=== PATIENT | female | born 1985 | race Caucasian/White ===

== ENCOUNTER → 2017-06-14 07:32 | Outpatient (CLI) | payer OTHER, SELFPAY ==
--- NOTE | 2017-06-14 07:37 | US_ITS ---
STUDY: THYROID ULTRASOUND REASON FOR EXAM: Female, 31 years old. Nodules TECHNIQUE: Ultrasound evaluation of the thyroid was performed with real-time and static wills-scale imaging. COMPARISON: October 20, 2014 FINDINGS: RIGHT LOBE: The right lobe of the thyroid gland measures 5.5x1.6x2.2 cm. There is a heterogeneous echotexture. Multiple thyroid nodules. The largest is in the midline measuring 15 x 11 x 11 mm. The lesion is solid /cystic with regular margins and boby nodular doppler flow. LEFT LOBE: The left lobe of the thyroid gland measures 7.4x3.2x3.1 cm. There is a heterogeneous echotexture. Multiple thyroid nodules. The largest is in the upper pole measuring 37 x 30 x 24 mm. The lesion is solid /cystic with regular margins and intra- nodular doppler flow. ISTHMUS: The isthmus measures 9 mm. Isthmus nodule measuring 29 x 25 x 17 mm. US/Thyroid IMPRESSION: Bilateral multiple thyroid nodules. Largest right nodule has decreased in size. Largest left thyroid nodule has increased in size. Isthmus nodule has enlarged. Electronically Signed: Emmanuel Luna MD at 17:08 EDT , Service support ,
== END ==
PROVIDERS: Family Provider Nurse Practitioner; PCP Nurse Practitioner; Visit Provider Nurse Practitioner
DX: E04.2 Nontoxic multinodular goiter (principal)
CPT/HCPCS: 76536

== ENCOUNTER → 2017-06-27 16:37 | Outpatient (CLI) | payer OTHER, SELFPAY ==
--- NOTE | 2017-06-27 14:15 | ASPS_PTH ---
PATIENT: NOELLE KRUEGER [facility] U[id number] AGE/SX: 39/F ROOM: RE06/27/[address]: Dr. Hill Kahn MD : 1985 BED: DIS: SPEC #: [id number] RECD: 06/27/17 16:10 STATUS: DMOINIC MILLER #: [id number] APRYL: 06/27/17 14:[address]: Hill Kahn DEPT: CYTOLOGY RECD BY: Juan Villanueva ENTERED: 06/28/17 08:40 SP TYPE: ASPIRATION OTHR DR: Berenice Diaz, CATALYTIC CONVERTER OPERATOR-C Tissues: A - Thyroid gland, NOS B - Thyroid isthmus Procedures: Pap Stain (control) Special Stain Group II Cytology Other HEADER OPERATION: Ultrasound-guided fine needle aspiration left thyroid and isthmus PRE-OP DIAGNOSIS: Multinodular goiter TISSUE SUBMITTED: A ? Fine needle aspiration left thyroid (12 slides), B - Fine needle aspiration isthmus (12 slides) DIAGNOSIS CYTOLOGY A. Left thyroid, ultrasound-guided FNA (smears): Consistent with benign follicular nodule. See cytology study and comment. B. Isthmus, ultrasound-guided FNA (smears): Consistent with benign follicular nodule. See cytology study and comment. SJ:rg 07/01/17 COMMENT A & B. 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 Correlation with clinical, radiologic findings and appropriate follow up are necessary. Please make reference to previous cytology ([id number]) right thyroid nodule, ultrasound-guided FNA with diagnosis of negative for malignant cells and left thyroid nodule, FNA with diagnosis of benign colloid nodule, and ([id number]) right thyroid nodule, FNA with diagnosis of consistent with benign follicular nodule. CYTOLOGY STUDY Slides are reviewed. A & B. The specimen is adequate for evaluation. The specimen consists of benign follicular cells, colloid and lymphocytes. CYTOLOGY GROSS A - Received are 12 smears labeled with the patient's name and designated per the requisition as left thyroid. Submitted for staining. B - Received are 12 smears labeled with the patient's name and designated per the requisition as isthmus. Submitted for staining. 06/28/17 TC:5 CPT: 41746 x2
== END ==
PROVIDERS: Family Provider Nurse Practitioner; PCP Nurse Practitioner; Visit Provider Surgery
DX: E04.2 Nontoxic multinodular goiter (principal)
CPT/HCPCS: 88161; 88313

== ENCOUNTER → 2019-05-22 08:50 | Outpatient (CLI) | payer OTHER, SELFPAY ==
--- NOTE | 2019-05-22 08:56 | US_ITS ---
STUDY: THYROID ULTRASOUND REASON FOR EXAM: Female, 33 years old. NODULES TECHNIQUE: Ultrasound evaluation of the thyroid was performed with real-time and static wills-scale imaging. COMPARISON: Comparison is made with the prior examination dated June 14, 2017. FINDINGS: RIGHT LOBE: The right lobe of the thyroid gland is enlarged and measures 6.2 cm x 1.5 cm x 2.6 cm. There is a heterogeneous echotexture. Once again, multiple hypoechoic solid nodules are seen. The largest measures 2 cm x 1.8 cm x 1.7 cm. This is in the mid pole. This has increased in size as compared to prior study. A biopsy is recommended for further evaluation. LEFT LOBE: The left lobe of the thyroid gland is enlarged and measures 7.4 cm x 3.1 cm x 3.9 cm. There is a heterogeneous echotexture. Multiple solid nodules are seen. The largest measures 3 cm x 3 3 cm x 2.7 cm. This is in the midportion of the pole. This is essentially unchanged. A biopsy is recommended for further evaluation. ISTHMUS: The isthmus measures 6.0 mm. The regional lymph nodes are normal. US/Thyroid IMPRESSION: Heterogeneous enlarged thyroid gland with multiple bilateral solid nodules. A biopsy of the dominant nodules in both lobes is recommended for further evaluation. Electronically Signed: Marcel Mark, at 10:36 EDT , Service support ,
== END ==
PROVIDERS: PCP Internal Medicine; Referring Provider Internal Medicine; Visit Provider Internal Medicine
DX: E04.1 Nontoxic single thyroid nodule (principal)
CPT/HCPCS: 76536